=== PATIENT | male | born 2000 | race Two or more races ===

== ENCOUNTER 2020-12-07 08:20 | Emergency (ER) | payer OTHER ==
[~2020-12-07] VITALS: Ht 91.4 cm; Wt 23.6 kg
[2020-12-07 09:14] VITALS: BP 149/110
[2020-12-07] MEDS ORDERED: LORazepam 0.5 MG TABLET GT ONE (09:15)
--- NOTE | 2020-12-07 09:21 | PHYS DOC ---
General Adult EDM: Chief Complaint: URINARY RETENTION HPI: HPI: Patient is a 20 year old male with history of epidermolysis bullosa who presents with urinary retention and dark urine. Has not been able to fully void for 2 days. Denies fever, chills, back pain, abdominal pain. Urine was reportedly dark brown and the small bits that have come out into the condom catheter that he wears for urinary incontinence. He has recently had stem cell therapy done in [place]. Resides in [facility], but is in town for [employer] this weekend. Is fed chronically through the G-tube. Chronic pain medications with oxycodone. Does take Xanax at home, but has not had any today. Review of Systems: Review of Systems: Constitutional: Denies fever or chills. [] Eyes: Denies change in visual acuity. [] HENT: Denies nasal congestion or sore throat. [] Respiratory: Denies cough or shortness of breath. [] Cardiovascular: Denies chest pain or edema. [] GI: Denies abdominal pain, nausea, vomiting, bloody stools or diarrhea. [] : Reports urinary retention and dark brown urine Musculoskeletal: Denies back pain or joint pain. [] Integument: Chronic epidermolysis bullosa Neurologic: Denies headache, focal weakness or sensory changes. [] Endocrine: Denies polyuria or polydipsia. [] Lymphatic: Denies swollen glands. [] Psychiatric: Denies depression or anxiety. [] Heart Score: C/O Chest Pain: No Physical Exam: PE: Constitutional: Very small for age, open wounds and bandages diffusely over the entire body. Contractures noted. Seated in a motorized wheelchair. Eyes: conjunctiva normal, no discharge. [] Neck: no stridor. [] Cardiovascular: Tachycardic (mother states normal rate for him), regular rhythm, Lungs & Thorax: Bilateral breath sounds clear to auscultation [] Abdomen: Distended and tender to palpation in the suprapubic region. Skin: Extensive open wounds, skin sloughing. (Mother states appears at baseline for him) Back: No tenderness, no CVA tenderness. [] Neurologic: Alert and oriented X 3 EKG: EKG: [] Radiology/Procedures: Radiology/Procedures: [] Course & Med Decision Making: Course & Med Decision Making Pertinent Labs and Imaging studies reviewed. (See chart for details) Patient is a 20-year-old male with epidermolysis bullosa with extensive contractures, limited mobility, urinary incontinence, and malnutrition requiring G-tube who presents with urinary retention and dark brown urine. [id number] ultrasound shows a largely distended bladder to level of umbilicus. Was not able to visualize the kidneys, because of overlying wounds. Is afebrile, slightly [id number] (which mother states is his baseline), and other vital signs stable on arrival. Chronically ill-appearing, but not in any acute distress. We will place a Alvarez catheter, check CBC, BMP, UA, CK. 0920 Unable to pass alvarez catheter on multiple attempts by nursing staff. hitting large amount of resistance. concern for stricture. Will need urology. Discussed transfer. They have received care at [facility] and would like to go there. They are refusing official transfer and are planning to drive themselves to the ED via POV. 1029 Mone Disclaimer: Mone Disclaimer: This electronic medical record was generated, in whole or in part, using a voice recognition dictation system. Departure Departure Impression: Primary Impression: Urinary retention Disposition: LEFT AGAINST MEDICAL ADVICE Condition: STABLE YAJAIRA CARDONA MD Dec 07, 2020 09:21
== END 2020-12-07 10:40 | disposition left against medical advice (07) ==
LOC: ER 08:20
DX: R33.9 Retention of urine, unspecified (principal)
CPT/HCPCS: 51702; 99284